=== PATIENT | female | born 1995 | race Hispanic/Latino ===

== ENCOUNTER 2024-03-24 11:54 | Day surgery (SDC) | payer OTHER ==
[2024-03-24 12:24] VITALS: BMI 33.2
== END 2024-03-24 14:20 | disposition home or self-care (01) ==
LOC: CSHLD/OP 11:54
PROVIDERS: ATTEND Family Medicine
DX: Z36.89 Encounter for other specified antenatal screening (principal); O24.419 Gestational diabetes mellitus in pregnancy, unspecified control; Z3A.00 Weeks of gestation of pregnancy not specified
CPT/HCPCS: 59025; 76819

== ENCOUNTER 2024-04-04 23:14 | Inpatient (IN) | payer OTHER ==
[2024-04-04 23:34] VITALS: BMI 33.4
[2024-04-05 00:26] LABS: Fetal Membranes Rupture RUPTURE DETECTED (No Rupture)
[2024-04-05] MEDS ORDERED: hydrALAZINE 20 MG/ML VIAL SLOW IVP PRN ×3 (01:04→08:02)
[2024-04-05] MEDS ORDERED: Misoprostol 200 MCG TAB PR PRN ×2 (01:06→08:02)
[2024-04-05] MEDS ORDERED: Promethazine HCl 25 MG/ML VIAL IM PRN ×2 (01:06→09:42)
[2024-04-05] MEDS ORDERED: Tranexamic Acid 1,000 MG/10 ML VIAL IVP PRN (01:06)
[2024-04-05] MEDS ORDERED: Carboprost 250 MCG/ML AMP IM PRN (01:06)
[2024-04-05] MEDS ORDERED: Methylergonovine 0.2 MG/ML VIAL IM PRN ×2 (01:06→08:02)
[2024-04-05] MEDS ORDERED: Ondansetron PF 4 MG/2 ML Vial IVP PRN ×3 (01:06→09:42)
[2024-04-05] MEDS ORDERED: Acetaminophen 500 MG TAB PO PRN (01:06)
[2024-04-05] MEDS ORDERED: Diphenoxylate HCl/Atropine Tablet PO PRN ×2 (01:06)
[2024-04-05] MEDS ORDERED: Ibuprofen 800 MG TAB PO PRN (01:11)
[2024-04-05] MEDS ORDERED: Lidocaine 1% (PF) 30 ML VIAL SC PRN (01:11)
[2024-04-05] MEDS ORDERED: Oxytocin 30 units/NS 500 ML 500 ML IV SCH ×3 (01:15→08:15)
[2024-04-05 01:21] LABS: Hematocrit 30.7 % (34.9-44.5); Hemoglobin 9.3 g/dL (12.0-15.5); Mean Corpuscular HGB CONC 30.3 g/dL (32.0-36.0); Mean Corpuscular Hemoglobin 21.7 pg (27.0-33.0); Mean Corpuscular Volume 71.6 fL (81.6-98.3); Platelet Count 277 10x3/uL (150-450); RBC Distribution Width 17.2 % (11.5-14.5); Red Blood Cell (RBC) Count 4.29 10x6/uL (3.90-5.03); White Blood Cell (WBC) Count 5.6 10x3/uL (3.5-10.5)
[2024-04-05 01:46] LABS: ALT (SGPT) 41 U/L (8-55); AST (SGOT) 26 U/L (5-34); Albumin 2.9 g/dL (3.5-5.0); Alkaline Phosphatase 185 U/L (40-110); Anion Gap 15 mmol/L (10-20); BUN (Urea Nitrogen) 11 mg/dL (7.0-18.7); Bilirubin, Total 0.2 mg/dL (0.2-1.2); Calc. Creatinine Clearance 157 mL/min (70-130); Calcium 8.8 mg/dL (7.8-10.44); Carbon Dioxide 19 mmol/L (22-29); Chloride 107 mmol/L (98-107); Estimated GFR 122; Globulin 3.7 g/dL (2.4-3.5); Glucose 105 mg/dL (70-105); Potassium 4.4 mmol/L (3.5-5.1); Protein, Total 6.6 g/dL (6.0-8.3); Sodium 137 mmol/L (136-145)
[2024-04-05 01:51] LABS: HBsAg Index 0.17 S/CO (0-0.99); HIV (1/2) Antibody/Antigen Non-Reactive (NonReactive); HIV 1/2 INDEX 0.08 S/CO (<1.00); Hep B Surf Ag - L&D Non-Reactive S/CO (NonReactive); Syphilis Antibody Nonreactive (Nonreactive); Syphilis Antibody Index 0.04 S/CO (<1.00 Non-Reactive)
[2024-04-05 02:39] LABS: Creatinine, Urine 30.04 mg/dL (47-110)
[2024-04-05] MEDS: Misoprostol 100 MCG TAB VAG SCH (05:03)
[2024-04-05] MEDS ORDERED: Famotidine/PF 20 mg/2ml Vial SLOW IVP PRN (07:09)
[2024-04-05] MEDS ORDERED: Bicitra 30 ML UDCUP PO PRN (07:09)
[2024-04-05] MEDS ORDERED: CEFAZOLIN 2 GM in Sodium Chloride 0.9% 100 ML IVPB SCH (07:15)
[2024-04-05] MEDS ORDERED: Azithromycin 500 MG in Sodium Chloride 0.9% 250 ML 250 ML IVPB SCH (07:15)
[2024-04-05 07:34] LABS: Analyzer IN Cardio CS NICU; Critical Notified By: S. CREAMER, RRT; RapidComm Collect By CBN
[2024-04-05 07:37] LABS: Analyzer IN Cardio CS NICU; Critical Notified By: S. CREAMER, RRT; RapidComm Collect By CBN; pH (Cord, venous) 7.311 (7.250-7.350)
[2024-04-05] MEDS ORDERED: Misoprostol 100 MCG TAB PO SCH (08:00)
[2024-04-05] MEDS ORDERED: HYDROcodone/Acetaminophen 5/325 mg Tablet PO PRN ×2 (08:02)
[2024-04-05] MEDS ORDERED: Bisacodyl 10 MG SUPP PR PRN (08:02)
[2024-04-05] MEDS ORDERED: Lanolin Ointment 7 GM TUBE TOP PRN (08:02)
[2024-04-05] MEDS ORDERED: Boostrix 0.5 ML (Tdap) VIAL (>/=7 yrs of age) IM ONE (08:02)
[2024-04-05] MEDS ORDERED: Moisturizing Cream (Eucerin) 113 GM JAR TOP PRN (09:42)
[2024-04-05] MEDS ORDERED: diphenhydrAMINE 50 MG/ML VIAL IVP PRN (09:42)
[2024-04-05] MEDS ORDERED: Morphine 4 MG/ML VIAL SLOW IVP PRN (09:42)
[2024-04-05] MEDS ORDERED: Meperidine HCl/PF 25 MG (1 mL) VIAL SLOW IVP PRN (09:42)
[2024-04-05] MEDS ORDERED: fentaNYL 50 mcg/mL 1 mL Vial SLOW IVP PRN (09:42)
[2024-04-05] MEDS ORDERED: Naloxone HCl 0.4 mg/ml Vial IV PRN (09:42)
[2024-04-05] MEDS ORDERED: Naloxone HCl 0.4 mg/ml Vial IVP PRN ×2 (09:42)
[2024-04-05] MEDS ORDERED: Communication Order-Pharmacy FS SCH (09:45)
[2024-04-05] MEDS ORDERED: Ketorolac Tromethamine 30 MG (1 mL) VIAL IVP SCH (09:45)
[2024-04-05] MEDS: Azithromycin 500 MG VIAL ONE (19:47)
[2024-04-05] MEDS: Ondansetron PF 4 MG/2 ML Vial ONE (19:47)
[2024-04-05] MEDS: Morphine PF 10 MG/10 ML VIAL ONE (19:47)
[2024-04-05] MEDS: PHENYLEPHRINE-NS 100 MCG/ML 10 ML SYRINGE ONE (19:47)
[2024-04-05] MEDS: Dexmedetomidine 200 MCG/2 ML VIAL ONE (19:47)
[2024-04-05] MEDS: Oxytocin 10 UNITS/ML VIAL ONE ×2 (19:47)
[2024-04-05] MEDS: CEFAZOLIN 2 GM VIAL ONE (19:47)
[2024-04-05] MEDS: ePHEDrine Sulfate 50 MG/10 ML VIAL ONE (19:47)
[2024-04-05] MEDS: Sodium Chloride 0.9% 10 ML ONE (19:47)
[2024-04-05] MEDS: Prenatal Vitamin 1 TAB PO SCH (19:48)
[2024-04-05] MEDS: Docusate 100 MG CAP PO SCH (19:48)
[2024-04-05] MEDS: Promethazine HCl 25 MG/ML VIAL ONE (19:48)
[2024-04-05] MEDS: Ferrous Sulfate 325 MG TAB PO SCH (19:48)
[2024-04-05] MEDS: Ketorolac Tromethamine 30 MG (1 mL) VIAL IVP PRN (21:44)
[2024-04-06] MEDS: Acetaminophen 325 MG TAB PO PRN (03:29)
[2024-04-06 06:29] LABS: Hemoglobin 6.8 g/dL (12.0-15.5); Mean Corpuscular HGB CONC 30.9 g/dL (32.0-36.0); Mean Corpuscular Hemoglobin 22.4 pg (27.0-33.0); Mean Corpuscular Volume 72.4 fL (81.6-98.3); Mean Platelet Volume 11.4 fL (7.4-10.4); Platelet Count 196 10x3/uL (150-450); RBC Distribution Width 17.4 % (11.5-14.5); Red Blood Cell (RBC) Count 3.04 10x6/uL (3.90-5.03); White Blood Cell (WBC) Count 5.6 10x3/uL (3.5-10.5)
[2024-04-06] MEDS: Ibuprofen 800 MG TAB PO SCH (13:52)
[2024-04-06] MEDS: HYDROcodone/Acetaminophen 5/325 mg Tablet PO PRN (14:48)
[2024-04-06] MEDS: Simethicone Chewable 80 MG TAB PO PRN (15:54)
[2024-04-06] MEDS: Ibuprofen 200 MG TAB PO PRN (21:15)
[2024-04-07 05:56] LABS: Hematocrit 24.5 % (34.9-44.5); Hemoglobin 7.7 g/dL (12.0-15.5)
[2024-04-07 07:39] VITALS: BP 122/59; TEMP 97.8
== END 2024-04-07 13:35 | disposition home or self-care (01) | DRG 787 ==
LOC: CSHLD/OP 23:14 → CSHLD 04-05 01:18 → CSHPED 04-05 13:00
PROVIDERS: ADMIT Family Medicine; ATTEND Family Medicine
PROC: 10D00Z1 Extraction of Products of Conception, Low, Open Approach (ICD-10-PCS; principal; 2024-04-05)
DX: O45.93 Premature separation of placenta, unspecified, third trimester (principal); O72.1 Other immediate postpartum hemorrhage; O24.429 Gestational diabetes mellitus in childbirth, unspecified control; Z3A.37 37 weeks gestation of pregnancy; Z37.0 Single live birth; O64.0XX0 Obstructed labor due to incomplete rotation of fetal head, not applicable or unspecified; O90.81 Anemia of the puerperium; D50.0 Iron deficiency anemia secondary to blood loss (chronic)
CPT/HCPCS: 36415; 36430; 51702; 80053; 82570; 82805; 84112; 84156; 85014; 85018; 85027; 86780; 86850; 86900; 86901; 87340; 87389; 88307; 99285; J1885; J2274; J2405; J2550; J2590; P9016